=== PATIENT | male | born 1970 | race Caucasian/White ===

== ENCOUNTER 2016-07-11 19:35 | Emergency (ER) | payer OTHER, SELFPAY ==
--- NOTE | 2016-07-22 09:41 | ER ---
ADMIT: 07/11/2016 RM/LOC: ER [facility] MR#: [id number] [address] [id number] [place] [address] Emergency Room Report SEX: M AGE: 46 : 1970 DATE: 07/11/2016 ADDENDUM: CHIEF COMPLAINT: Abscess. HISTORY OF PRESENT ILLNESS: This is a 46-year-old, who has an abscess to his left buttock. Incision and drainage was done here in the emergency room. Please see T-sheet or the green sheet for that information. I am placing him on Keflex and Bactrim for 7 days and having a followup with primary care physician if worsen. CLINICAL IMPRESSION: Abscess to the left buttock with an incision and drainage. VANESA Lal / John Paul Del Toro MD / manolol JOB #: [id number] CC: John Paul Del Toro MD, Attending Physician Harish Carson MD, Family Physician
== END 2016-07-11 20:15 | disposition home or self-care (01) ==
LOC: ER 19:35
PROC: 0H98XZZ Drainage of Buttock Skin, External Approach (ICD-10-PCS; principal; 2016-07-11)
DX: L02.31 Cutaneous abscess of buttock (principal); F17.210 Nicotine dependence, cigarettes, uncomplicated